=== PATIENT | female | born 1980 | race Caucasian/White ===

== ENCOUNTER → 2019-12-27 14:56 | Outpatient (BNVA) | payer OTHER, SELFPAY | PROVIDERS: Visit Provider Nurse Practitioner Family | DX: Z20.828 Contact with and (suspected) exposure to other viral communicable diseases (principal) | CPT/HCPCS: 87635 ==

== ENCOUNTER 2021-09-06 16:14 | Emergency (ER) | payer OTHER, SELFPAY ==
[2021-09-06 17:04] VITALS: BP 106/62; PULSE 93; RESP 18; TEMP 36.9; O2SAT 97
[2021-09-06 19:30] LABS: Basophils # 0.1 10^3/uL (0.0-0.1); Basophils % 0.5 %; Eosinophils # 0.2 10^3/uL (0.0-0.8); Eosinophils % 1.3 %; Hematocrit 21.1 % (37.0-47.0); Lymphocytes % 15.6 %; Mean Corpuscular HGB Conc 27.5 g/dL (30.0-36.0); Mean Corpuscular Hemoglobin 16.9 pg (28.0-34.0); Mean Corpuscular Volume 61.5 fl (81-99); Mean Platelet Volume 9.6 fL (7.4-10.4); Monocytes # 0.9 10^3/uL (0.2-0.9); Monocytes % 6.6 %; Neutrophils # 9.63 10^3/uL (1.8-7.7); Neutrophils % 75.3 %; Nucleated Red Blood Cells # 0.1 /100WBC; Nucleated Red Blood Cells % 0.5 %; Platelet Count 330 10^3/cmm (130-400); Red Blood Count 3.43 10^6/uL (4.1-5.3); White Blood Count 12.8 10^3/uL (4.0-10.0)
[2021-09-06 19:32] LABS: Hemoglobin 5.8 g/dL (11.5-15.3)
[2021-09-06 19:52] LABS: Alanine Aminotransferase 10 U/L (0-33); Albumin Level 4.3 g/dL (3.5-5.2); Alkaline Phosphatase 84 IU/L (35-105); Anion Gap 17.8 (5-19); Aspartate Amino Transferase 10 U/L (0-32); Blood Urea Nitrogen 12 mg/dL (6-20); Calcium 9.1 mg/dL (8.5-10.5); Carbon Dioxide 22 mmol/L (22-29); Chloride 100 mmol/L (98-107); Globulin 3.2 g/dL (1.3-4.6); Glomerular Filtration Rate 79.9 mL/min (90-130); Glucose 143 mg/dL (65-115); Osmolality Calculated 284 mOsm/kg (285-295); Potassium 3.8 mmol/L (3.5-5.1); Sodium 136 mmol/L (136-145); Total Bilirubin 0.3 mg/dL (0.15-1.2); Total Protein 7.5 g/dL (6.6-8.7)
[2021-09-06 20:08] LABS: HCG, Serum Qual Negative (Negative)
--- NOTE | 2021-09-06 20:59 | USR_ITS ---
PROCEDURE INFORMATION: Exam: US Pelvis Complete, Transabdominal and US Pelvis, Transvaginal and US Duplex Artery and Vein, Ovaries, Complete Exam date and time: 09/06/2021 9:27 PM Age: 41 years old Clinical indication: Menstruation abnormalities; Excessive menstruation; Other: Chronically irregular since 2008; Prior surgery; Surgery date: 6+ months; Surgery type: Ectopic (her only ) in 2005; Patient HX: Patient is presenting to the er upon clinical advice due to severe anemia. She denies pelvic pain. Long history of chronic irregular heavy menses, she was seen at fertility clinic in [place] since 2018 but has had no success in getting ; Additional info: Anemia with chronic heavy, irregular vaginal bleeding TECHNIQUE: Imaging protocol: Real-time complete transabdominal and transvaginal pelvic ultrasound with image documentation. Transvaginal imaging was used for better evaluation of the endometrium, adnexa, and/or cervix. Real-time duplex ultrasound scan of the arterial and venous flow of the ovaries with B-mode, color Doppler flow and spectral waveform analysis. COMPARISON: No relevant prior studies available. FINDINGS: Uterus: Enlarged uterus measures approximately 11 cm longitudinal by 9.7 cm transverse by 6.5 cm AP. Large area central echogenicity within the endometrial cavity is noted which could either represent endometrial thickening, or alternatively large submucosal fibroid which has dimensions approximately 5.4 cm x 4.6 cm x 4 4 cm. Right ovary/adnexa: Ovary is normal. No mass. Normal ovarian blood flow. Unremarkable arterial and venous spectral Doppler waveform pattern. Left ovary/adnexa: Ovary is normal. No mass. Normal ovarian blood flow. Unremarkable arterial and venous spectral Doppler waveform pattern. Intraperitoneal space: No intraperitoneal fluid. Urinary bladder: Normal. US/US pelvic complete* [id number] IMPRESSION: 1. Negative for ovarian torsion. 2. Large uterus. Endocavitary lesion. Suspect large submucosal fibroid. Endometrial thickening cannot be excluded. 3. Recommend outpatient contrast enhanced pelvic MRI.
[2021-09-06 21:23] VITALS: BP 140/90; PULSE 91; RESP 26; O2SAT 99
--- NOTE | 2021-09-06 21:38 | ED_ITS ---
HPI - General Adult General: Chief complaint: General Medical Stated complaint: said DR sent to er for blood transfusion Time Seen by Provider: 09/06/21 20:51 Source: patient Mode of arrival: ambulatory Limitations: no limitations History of Present Illness: 41-year-old female states that over the last 2 weeks she has had some intermittent episodes of feeling dizzy states she had an episode today that lasted roughly an hour she states she had blood drawn and was told that she was anemic and told to come to the ER. She states she had had had a blood level checked before states she does have a long history of heavy menstruation she does have PCOS as well. She denies any rectal bleeding denies any dizziness currently patient's blood pressure is normal. Denies any pelvic or abdominal pain. Associated symptoms: Deny chest pain, dyspnea, headache(s), nausea, rash or vomiting Review of Systems Const: Denies: fever(s), chills, body aches or change in appetite Eyes: Denies: blurry vision or eye discomfort ENMT: Denies: throat pain or dental pain Card: Denies: chest pain Resp: Denies: dyspnea GI: Denies: abdominal pain, nausea, vomiting or diarrhea : Denies: dysuria Musc: Denies: neck pain or back pain Skin/Breast: Denies: rash Neuro: Denies: headache(s) Psych: Denies: depression Ben/Lymph: Denies: easy bruising All/Imm: Denies: urticaria PFSH ED PFSH: Family History Grandmother Hypertension Denies family history of Diabetes Clotting disorder Dementia Social History Smoking and tobacco status: current every day smoker Alcohol intake: current Alcohol intake frequency: few times a month Physical Exam Const: COMMON NORMALS: no acute distress, patient oriented x3 and healthy appearing HENMT: COMMON NORMALS: normocephalic and atraumatic HEAD & SCALP: normocephalic and atraumatic Eye: COMMON NORMALS: Equal, round and reactive pupils present and EOMs intact bilaterally PUPIL: Yes Equal, round and reactive pupils present Neck/C-Spine: COMMON NORMALS: full ROM and supple Chest: COMMONS NORMALS: normal inspection of the chest and normal palpation of entire chest wall Resp: COMMON NORMALS: normal respiratory effort, No retractions, No use of accessory muscles and clear to auscultation bilaterally AUSCULTATION: clear to auscultation bilaterally Cardio: COMMON NORMALS: regular rate, regular rhythm and No murmurs present (Cardio) RATE: regular rate RHYTHM: regular rhythm GI: COMMON NORMALS: Normal to inspection, nondistended, normoactive bowel sounds present, Soft to palpation, non-tender and no masses PALPATION: Yes Soft to palpation Extremity: COMMON NORMALS: normal to inspection and full ROM Neuro: COMMON NORMALS: patient oriented x3, moves all extremities and no focal motor deficits Psych: COMMON NORMALS: mental status grossly normal, Normal thought process present and cooperative THOUGHT PROCESS: Normal thought process present Skin: COMMON NORMALS: no rashes or lesions noted and no wounds GENERAL SKIN EXAM: no rashes or lesions noted Course Vital Signs: Vital signs: Vital Signs Temperature 99.2 F 09/07/21 00:29 Pulse Rate 85 09/07/21 00:29 Respiratory Rate 22 H 09/07/21 00:29 Blood Pressure 133/68 09/07/21 00:29 Pulse Oximetry 97 09/07/21 00:10 [facility] - General Adult Medical Decision Making Patient presents here with anemia that is likely chronic in nature from heavy menstruation. Patient given 2 units here we will get follow-up gynecology she is return if worsening she understands agrees to plan. Lab Data : 09/06/21 18:53 09/06/21 18:53 Radiology Impressions Pelvis Ultrasound 09/06/21 20:59 IMPRESSION: 1. Negative for ovarian torsion. 2. Large uterus. Endocavitary lesion. Suspect large submucosal fibroid. Endometrial thickening cannot be excluded. 3. Recommend outpatient contrast enhanced pelvic MRI. Laboratory Results WBC 12.8 10^3/uL (4.0-10.0) H 09/06/21 18:53 RBC 3.43 10^6/uL (4.1-5.3) L 09/06/21 18:53 Hgb 5.8 g/dL (11.5-15.3) L* 09/06/21 18:53 Hct 21.1 % (37.0-47.0) L 09/06/21 18:53 MCV 61.5 fl (81-99) L 09/06/21 18:53 MCH 16.9 pg (28.0-34.0) L 09/06/21 18:53 MCHC 27.5 g/dL (30.0-36.0) L 09/06/21 18:53 RDW 20.0 % (12.1-15.1) H 09/06/21 18:53 Plt Count 330 10^3/cmm (130-400) 09/06/21 18:53 MPV 9.6 fL (7.4-10.4) 09/06/21 18:53 Neut % (Auto) 75.3 % 09/06/21 18:53 Lymph % (Auto) 15.6 % 09/06/21 18:53 [place] % (Auto) 6.6 % 09/06/21 18:53 Eos % (Auto) 1.3 % 09/06/21 18:53 Baso % (Auto) 0.5 % 09/06/21 18:53 Neut # (Auto) 9.63 10^3/uL (1.8-7.7) H 09/06/21 18:53 Lymph # (Auto) 2.0 10^3/uL (0.8-4.8) 09/06/21 18:53 [place] # (Auto) 0.9 10^3/uL (0.2-0.9) 09/06/21 18:53 Eos # (Auto) 0.2 10^3/uL (0.0-0.8) 09/06/21 18:53 Baso # (Auto) 0.1 10^3/uL (0.0-0.1) 09/06/21 18:53 Nucleated RBC % (auto) 0.5 % 09/06/21 18:53 Nucleated RBCs # 0.1 /100WBC 09/06/21 18:53 Sodium 136 mmol/L (136-145) 09/06/21 18:53 Potassium 3.8 mmol/L (3.5-5.1) 09/06/21 18:53 Chloride 100 mmol/L (98-107) 09/06/21 18:53 Carbon Dioxide 22 mmol/L (22-29) 09/06/21 18:53 Anion Gap 17.8 (5-19) 09/06/21 18:53 BUN 12 mg/dL (6-20) 09/06/21 18:53 Creatinine 0.8 mg/dL (0.5-0.9) 09/06/21 18:53 GFR Calculation 79.9 mL/min (90-130) L 09/06/21 18:53 Glucose 143 mg/dL (65-115) H 09/06/21 18:53 Calculated Osmolality 284 mOsm/kg (285-295) L 09/06/21 18:53 Calcium 9.1 mg/dL (8.5-10.5) 09/06/21 18:53 Total Bilirubin 0.3 mg/dL (0.15-1.2) 09/06/21 18:53 AST 10 U/L (0-32) 09/06/21 18:53 ALT 10 U/L (0-33) 09/06/21 18:53 Alkaline Phosphatase 84 IU/L (35-105) 09/06/21 18:53 Total Protein 7.5 g/dL (6.6-8.7) 09/06/21 18:53 Albumin 4.3 g/dL (3.5-5.2) 09/06/21 18:53 Globulin 3.2 g/dL (1.3-4.6) 09/06/21 18:53 HCG, Qual Negative (Negative) 09/06/21 18:53 Blood Type O Positive 09/06/21 20:45 Rho(D) Type Positive 09/06/21 20:45 Antibody Screen Negative 09/06/21 20:45 Crossmatch See Detail 09/06/21 20:45 Discharge Plan Discharge Patient Disposition: Home Clinical Impression: Anemia, Abnormal vaginal bleeding Condition: Stable Prescriptions: No Action No Known Home Medications 0RF Discharge Orders: Discharge ED (Routine); Ordered 09/06/21 Ordered By: Nubia Sanchez Referrals: Cooper Roldan MD [Physician] - 1-3 days Discharge Diet: Advance as tolerated Discharge Activity: Resume usual activity Patient Instructions: Abnormal (Dysfunctional) Uterine Bleeding (ED), Anemia (ED) Coding Level of Care Code ED Measurement And Verification Engineer for Chg Fwd Exam Comprehensive
[2021-09-06 22:26] VITALS: BP 107/76; BP 123/73; BP 138/69; PULSE 88; PULSE 95; PULSE 97
[2021-09-06 22:35] VITALS: BP 109/63; PULSE 84; RESP 23; TEMP 36.7; O2SAT 97
[2021-09-06] MEDS: sodium chloride 0.9% 250 ML IV (22:46)
[2021-09-06 22:51] VITALS: BP 107/77; PULSE 81; RESP 18; TEMP 36.8
[2021-09-06 23:06] VITALS: BP 120/70; PULSE 87; RESP 22; TEMP 36.8; O2SAT 98
[2021-09-07 00:10] VITALS: BP 128/63; PULSE 88; RESP 22; TEMP 36.8; O2SAT 97
[2021-09-07 00:29] VITALS: BP 133/68; PULSE 85; RESP 22; TEMP 37.3
[2021-09-07 02:05] VITALS: BP 135/80; PULSE 81; RESP 17; O2SAT 100
--- NOTE | 2021-09-08 08:56 | DCPLANNER ---
Addendum entered by Penny Turner 11/09/21 14:57: Patient had a follow up appointment scheduled with [facility] - patient did attend appointment Addendum entered by Penyn Turner 09/19/21 11:37: Patient has a follow up appointment scheduled for Sunday, October 24, 2021 at 8:[address] Roldan at [facility]. Clinic will call patient with appointment information. Original Note: market sales manager had message to schedule a follow up appointment for patient with [facility]. market sales manager sent patients information to the front office staff at [facility]. Patients information will be printed and reviewed. Clinic will call patient with appointment information.
== END 2021-09-07 02:06 | disposition home or self-care (01) ==
PROVIDERS: Physician Assistant; Emergency Provider Emergency Medicine
DX: D64.9 Anemia, unspecified (principal); N93.9 Abnormal uterine and vaginal bleeding, unspecified; F17.210 Nicotine dependence, cigarettes, uncomplicated
CPT/HCPCS: 36430; 76856; 80053; 84703; 85025; 86850; 86900; 86920; 99285; 99291; J7050; P9016

== ENCOUNTER → 2021-10-24 08:17 | Outpatient (BNVA) | payer OTHER, SELFPAY | PROVIDERS: Visit Provider Obstetrics & Gynecology | DX: Z12.4 Encounter for screening for malignant neoplasm of cervix (principal); N93.9 Abnormal uterine and vaginal bleeding, unspecified; D25.0 Submucous leiomyoma of uterus | CPT/HCPCS: 83001; 84146; 87624 ==

== ENCOUNTER 2021-11-08 06:59 | Day surgery (SDC) | payer OTHER, SELFPAY ==
[2021-11-06 13:19] VITALS: BMI 46.0
[2021-11-06 13:24] LABS: OR HCG Qualitative Urine Negative (Negative)
[2021-11-06 13:42] LABS: Add Urine Microscopic? YES; Bilirubin Urine Neg (Negative); Blood Urine 2+ (Negative); Glucose Urine UA 2+ (Normal); Ketones Urine Negative (Negative); Leukocyte Esterase Urine Negative (Negative); Nitrate Urine Negative (Negative); Protein Urine Neg (Negative); Urine Appearance Clear (CLEAR); Urine Color Yellow (Yellow); Urobilinogen Urine Norm (Negative); pH Urine 5 (5-7)
[2021-11-06 13:43] LABS: Add Urine Culture? No; Bacteria Urine 1+ /hpf; RBC Urine RARE /hpf (0-2); Squamous Epithelial Cell Urine 0-4 /hpf (0-5); WBC Urine RARE /hpf (0-5)
[2021-11-06 14:13] LABS: Basophils # 0.1 10^3/uL (0.0-0.1); Basophils % 0.7 %; Eosinophils # 0.2 10^3/uL (0.0-0.8); Eosinophils % 1.7 %; Hematocrit 33.1 % (37.0-47.0); Hemoglobin 9.8 g/dL (11.5-15.3); Lymphocytes # 1.2 10^3/uL (0.8-4.8); Lymphocytes % 13.2 %; Mean Corpuscular HGB Conc 29.6 g/dL (30.0-36.0); Mean Corpuscular Hemoglobin 24.9 pg (28.0-34.0); Monocytes # 0.5 10^3/uL (0.2-0.9); Neutrophils # 7.05 10^3/uL (1.8-7.7); Neutrophils % 78.1 %; Nucleated Red Blood Cells % 0 %; Platelet Count 228 10^3/cmm (130-400); Red Blood Count 3.94 10^6/uL (4.1-5.3); Red Cell Distribution Width 16.1 % (12.1-15.1)
[2021-11-06 14:21] LABS: Alanine Aminotransferase 14 U/L (0-33); Albumin Level 3.9 g/dL (3.5-5.2); Alkaline Phosphatase 89 U/L (35-105); Aspartate Amino Transferase 15 U/L (0-32); Blood Urea Nitrogen 11 mg/dL (6-20); Calcium 8.8 mg/dL (8.5-10.5); Carbon Dioxide 24 mmol/L (22-29); Chloride 102 mmol/L (98-107); Globulin 3.2 g/dL (1.3-4.6); Glomerular Filtration Rate 93.2 mL/min (90-130); Glucose 227 mg/dL (65-115); Osmolality Calculated 291 mOsm/kg (285-295); Sodium 137 mmol/L (136-145); Total Bilirubin 0.2 mg/dL (0.15-1.2); Total Protein 7.1 g/dL (6.6-8.7)
[2021-11-06 14:27] LABS: Anion Gap 14.9 (5-19); Potassium 3.9 mmol/L (3.5-5.1)
--- NOTE | 2021-11-06 16:28 | ANES.PREANE2 ---
Pre-Anesthetic Assessment Height/Weight: Height 1.63 m Weight 121.563 kg Preop Diagnosis: AUB Operation Date: 11/08/21 14:25 Proposed Procedures p Laparoscopy, surgical ablation of uterine fibroid 00417,D25.0(Not Applicable) - Cooper Roldan MD s Laser Ablation(Not Applicable) - Cooper Roldan MD Familial anesthetic complications: None Was Beta Daisha taken within 24 hours: N/A Was Clonidine taken within 24 hours: N/A Social Tobacco and No alcohol Exam alert, oriented x 3 and regular rate & rhythm b/l breath sounds diminished Airway Submandibular: within normal limits Cervical ROM: within normal limits Mallampati: Class I Dentition: full History/ROS No significant complaints Pulmonary None reported CV/HEM None reported AUB Hepatic None reported GI Gastroesophageal Reflux Disease (Well controlled ) Metabolic None reported Musc/skel None reported Neuropsych None reported Anesthetic Plan ASA status: 2 Anesthesia: Anesthesia Evaluation and General Other: We discussed risk and benefits of general anesthesia including PONV, sore throat (sometimes severe), corneal abrasion, positioning and peripheral nerve injuries, life threatening allergic reaction, post operative ICU admission requiring prolonged intubation, stroke, heart attack, , and rare incidences of recall. Patient consents to proceed with general anesthesia. Risk of > 500 ml blood loss (7ml/kg in children): No Medications/Allergies Home Medications Medication Instructions Recorded Confirmed Last Taken Type Iron 100 mg PO .daily 10/24/21 11/06/21 Unknown History ibuprofen 800 mg tablet 800 mg PO TID Abnormal uterine 10/24/21 11/06/21 Unknown Rx bleeding, pelvic pain #90 tabs multivitamin 3 tab PO DAILY 10/24/21 11/06/21 Unknown History Allergies Allergy/AdvReac Type Severity Reaction Status Date / Time No Known Allergies Allergy Verified 11/06/21 13:17 [facility] Anesthesia Family History Grandmother No problems noted. Father Diabetes Denies family history of Colon cancer Ovarian cancer Clotting disorder Heart disease Hyperlipidemia Breast cancer Anesthesia complication Bleeding disorder Hypertension Uterine cancer Thyroid condition Stroke Social History Smoking and tobacco status: current every day smoker (smokes 0.5 ppd ) Alcohol intake: current Alcohol intake frequency: few times a month Data Anesthesia : 11/06/21 13:28 11/06/21 13:28 Short CBC 11/06/21 Range/Units 13:28 WBC 9.0 (4.0-10.0) 10^3/uL Hgb 9.8 L (11.5-15.3) g/dL Hct 33.1 L (37.0-47.0) % MCV 84.0 (81-99) fl Plt Count 228 (130-400) 10^3/cmm Neut % (Auto) 78.1 % Neut # (Auto) 7.05 (1.8-7.7) 10^3/uL BMP 11/06/21 13:28 Sodium 137 Potassium 3.9 Chloride 102 Carbon Dioxide 24 BUN 11 Creatinine 0.7 Glucose 227 H Calcium 8.8 Liver Function 11/06/21 Range/Units 13:28 Total Bilirubin 0.2 (0.15-1.2) mg/dL AST 15 (0-32) U/L ALT 14 (0-33) U/L Alkaline Phosphatase 89 (35-105) U/L Albumin 3.9 (3.5-5.2) g/dL Urine 11/06/21 Range/Units 13:13 Urine Color Yellow (Yellow) Urine Appearance Clear (CLEAR) Urine pH 5 (5-7) Ur Specific [place] 1.030 (1.005-1.030) Urine Protein Neg (Negative) Urine Glucose (UA) 2+ H (Normal) Urine Ketones Negative (Negative) Urine Nitrate Negative (Negative) Urine Bilirubin Neg (Negative) Ur Leukocyte Esterase Negative (Negative) Urine RBC Rare (0-2) /hpf Urine WBC Rare (0-5) /hpf Blood Bank 11/06/21 13:28 Blood Type O Positive Rho(D) Type Positive Antibody Screen Negative Cardiac Studies: No Data to Display
[2021-11-08] VITALS (12 sets, daily range): BP systolic 99–133; BP diastolic 47–83; PULSE 64–99; RESP 17–18; TEMP 36.2–36.9; O2SAT 96–100
--- NOTE | 2021-11-08 07:38 | P.ANESUD_ITS ---
Pre-Anesthetic Update Pre-Anesthetic Assessment: Date of Surgery/Procedure: 11/08/21 Preop Mimi gnosis: Uterine fibroids, enlarged uterus Proposed Procedure: Operation Date: 11/08/21 08:40 Proposed Procedures p Laparoscopy, surgical ablation of uterine fibroid 56201,D25.0(Not Applicable) - Cooper Roldan MD s Laser Ablation(Not Applicable) - Cooper Roldan MD Any changes to Pre-Anesthetic Assessment?: No Last Intake: 11/07/21 Labs Last 48hrs: Short CBC 11/06/21 Range/Units 13:28 WBC 9.0 (4.0-10.0) 10^3/ uL Hgb 9.8 L (11.5-15.3) g/dL Hct 33.1 L (37.0-47.0) % MCV 84.0 (81-99) fl Plt Count 228 (130-400) 10^3/c mm Neut % (Auto) 78.1 % Neut # (Auto) 7.05 (1.8-7.7) 10^3/u L BMP 11/06/21 13:28 Sodium 137 Potassium 3.9 Chloride 102 Carbon Dioxide 24 BUN 11 Creatinine 0.7 Glucose 227 H Calcium 8.8 Liver Function 11/06/21 Range/Units 13:28 Total Bilirubin 0.2 (0.15-1.2) mg/dL AST 15 (0-32) U/L ALT 14 (0-33) U/L Alkaline Phosphata se 89 (35-105) U/L Albumin 3.9 (3.5-5.2) g/dL Urine 11/06/21 Range/Units 13:13 Urine Color Yellow (Yellow) Urine Appearance Clear (CLEAR) Urine pH 5 (5-7) Ur Specific Gravit y 1.030 (1.005-1.030) Urine Protein Neg (Negative) Urine Glucose (UA) 2+ H (Normal) Urine Ketones Negative (Negative) Urine Nitrate Negative (Negative) Urine Bilirubin Neg (Negative) Ur Leukocyte Patricia ase Negative (Negative) Urine RBC Rare (0-2) /hpf Urine WBC Rare (0-5) /hpf Blood Bank 11/06/21 13:28 Blood Type O Positive Rho(D) Type Positive Antibody Screen Negative Vitals: Temperature 97.2 F L 11/08/21 07:25 Temperature Source Temporal Artery S can 11/08/21 07:25 Pulse Rate 79 11/08/21 07:25 Respiratory Rate 18 11/08/21 07:25 Blood Pressure 130/76 11/08/21 07:25 Blood Pressure Peyton n 94 11/08/21 07:25 Pulse Oximetry 99 11/08/21 07:25 Oxygen Delivery Me thod 11/08/21 07:25 Exam: Pre-Anes Outpt Exam: alert, oriented x 3, clear to auscultation bilaterally and regular rate & rhythm Cardiac Studies: No Data to Display
[2021-11-08] MEDS: sodium chloride 0.9% 500 ML IV (07:41)
[2021-11-08] MEDS: scopolamine 1.5 Patch 1 PATCH TRANSDERMA (07:44)
[2021-11-08] MEDS: ondansetron 2 mg/ML SDV 2 mL 4 MG IVP (07:54)
--- NOTE | 2021-11-08 08:52 | W.PM.OPSUD ---
Surgery/Procedure H&P Update DATE OF PROCEDURE: November 08, 2021 DATE H&P PERFORMED: 11/06/21 H&P UPDATE INFORMATION: I have reviewed H&P completed within last 30 days, I have examined patient prior to procedure and No changes to prior documentation PREOP DIAGNOSIS: Uterine fibroids, enlarged uterus PLANNED PROCEDURE: Operation Date: 11/08/21 08:40 Proposed Procedures p Laparoscopy, surgical ablation of uterine fibroid 76077,D25.0(Not Applicable) - Cooper Roldan MD s Laser Ablation(Not Applicable) - Cooper Roldan MD
[2021-11-08] MEDS: ceFAZolin 2,000 MG in sodium chloride 0.9% (plus) 50 ML 100 MG IV (09:00)
--- NOTE | 2021-11-08 10:09 | SUR.OPER ---
0936 [facility] ProVu Console Model No [id number] Serial No [id number]
--- NOTE | 2021-11-08 10:38 | P.OP_ITS ---
Operative Report Date of procedure: November 08, 2021 Pre-op diagnosis: Preop Diagnosis Uterine fibroids, enlarged uterus Post-op diagnosis: Same as above Post-op findings: Enlarged uterus Procedure done: Dilation and curettage Diagnostic laparoscopy. Laparoscopic radiofrequency ablation of fibroid uterus via Acessa. Implants: None Specimens removed/disposition: Endometrial curettings Surgeon: Cooper Roldan MD Estimated blood loss (mL): 20 IV fluids (mL): 1,200 Urine output (mL): 100 Findings: Enlarged uterus Procedure: After informed consent, the patient was taken to the operating room where general anesthesia was administered. The patient was examined under anesthesia and found to have a normal uterus with normal adnexa. She was placed in the dorsal lithotomy position and prepped and draped in sterile fashion. Pre- Procedure Time-Out verifying the correct patient identity, correct procedure verified with consent, correct site and side, correct patient position, availability of correct implants and any special equipment or requirements was performed and acknowledge by the OR team. A bivalve speculum was placed in the vagina to gain visualization of the cervix which was cleansed with a betadine solution. The anterior lip of the cervix was grasped with a tenaculum. The cervix was then serially dilated to 8 mm and a and a sharp curette was advanced into the uterus and serial passes with the curette were performed without complication until gritty sensation. The the uterine manipulator was advanced into the endocervical. Tenaculum was removed after uterine manipulator was secured. The speculum was removed from the vagina. An intraumbilical incision was made with a scalpel. While tenting up on the abdomen, a Verres needle with sleeve was admitted into the intra-abdominal cavity. A saline drop test was performed and noted to be within normal limits. Pneumoperitoneum was attained with 4 liters of carbon dioxide. The Verres needle was removed. A 5 mm trocar and sleeve were admitted into the abdomen and laparoscopic confirmation of location was achieved, A second incision was made 4-5 cm above the symphysis pubis, and a 10 mm trocar and sleeve were admitted into the abdomen under direct, laparoscopic visualization without complication. A survey revealed normal abdominal anatomy but pelvic survey shows an enlarged uterus, normal left and right adnexa. As the patient is on menses scant blood noted in pelvis. A 5 mm blunt probe was advanced through the second trocar sle briana, and light manipulation of ovaries and uterus to assess the posterior aspects was performed. The laparoscopic ultrasound probe introduced throught the 10 mm trocar and placed directly on the fundal posterior aspect of the uterus that allows them to locate the large uterine leiomyomas. Then the Acessa handpiece was deploys parallel to ultrasound probe placing the tip into the fibroid. The leiomamyoma was ablated twice with out complications at diferent location within the leiomyoma. Each ablation was 4 minutes in duration. Then Carbon dioxide was allowed to escape from the abdomen. The instruments were removed, and skin closed with 3-O Vicryl and cover with Dermabond. The instruments were removed from the vagina, and excellent hemostasis was noted. The patient tolerated the procedure well, and sponge, lap and needle count were correct times two. The patient taken to the recovery room in good condition.
--- NOTE | 2021-11-08 11:01 | SUR.PHASEI ---
1046 PT TO PACU 5 PT AWAKES TO VOICE, GOOD RESP EFFORT NOTED PT ON 8L MASK, ABDOMEN SOFT WITH 2 SITES TO UMBILICAL AND LOW MID ABDOMEN WITH SKIN GLUE , BILAT SCDS ON AND WORKING, IV TO RT HAND WITH #20 NS 600ML AT KVO RATE PER GRAVITY, ID BRACELET TO LT WRIST, PT ID'D WITH 2 IDENTIFIERS, LEAL CATHETER PATENT OF YELLOW CLEAR URINE IN TUBING AND BAG, NO URETHRAL TENSION NOTED STATLOCK TO SECURE LEAL PLACED TO RT INNER THIGH. PT ROLLS SIDE TO SIDE TO COMFORT, PT DENIES PAIN AND NAUSEA AT THIS TIME.
[2021-11-08] MEDS: fentaNYL 50 mcg/mL INJ 2mL IVP (11:08)
--- NOTE | 2021-11-08 11:12 | SUR.PHASEI ---
1105 PT POSITIONED ON RT SIDE, C/O OF PAIN TO LOWER ADOMEN SITES AT 8 SEE PAIN MED GIVEN 1113 PT SLEEPS QUIETLY NOW , NO C/O OF PAIN VSS ABDOMEN SOFT AND UNCHANGED.
[2021-11-08] MEDS: HYDROcodone-acetaminophen 5-325 mg Tablet 1 TAB PO (11:58)
[2021-11-08 12:44] LABS: OR HCG Qualitative Urine Negative (Negative)
--- NOTE | 2021-11-08 13:54 | ANE.PACU2 ---
Inpatient post-anesthesia follow up: Airway intact: Yes Vital signs: Temperature 97.3 F Pulse Rate 68 Respiratory Rate 18 Blood Pressure 122/68 Pulse Oximetry 99 Oxygen Delivery Me thod Room Air Oxygen Flow Rate 8 Fraction of Inspir ed Oxygen Hydration adequate: Yes Nausea and vomiting: No Pain level: 4 Mental status: Baseline
[2021-11-14 09:10] LABS: Mismatch Repari Proteins-IHC See Report
== END 2021-11-08 12:29 | disposition home or self-care (01) ==
PROVIDERS: Anesthesiology; PCP Physician Assistant; Visit Provider Obstetrics & Gynecology
PROC: (CPT 49320; principal; 2021-11-08 08:30)
PROC: (CPT 58120; 2021-11-08 08:30)
DX: D25.9 Leiomyoma of uterus, unspecified (principal); C54.1 Malignant neoplasm of endometrium; K21.9 Gastro-esophageal reflux disease without esophagitis; I11.0 Hypertensive heart disease with heart failure; I50.9 Heart failure, unspecified; E78.5 Hyperlipidemia, unspecified; F17.200 Nicotine dependence, unspecified, uncomplicated; Z86.73 Personal history of transient ischemic attack (TIA), and cerebral infarction without residual deficits
CPT/HCPCS: 58674; 36415; 80053; 81001; 81025; 84703; 85025; 86850; 86900; 88305; 88360; J1100; J1200; J2250; J2405; J2704; J3010; J3490; J7040